=== PATIENT | male | born 1965 | race Caucasian/White ===

== ENCOUNTER 2017-07-05 12:48 | Emergency (ER) | payer MEDICAID, SELFPAY ==
[~2017-07-05] VITALS: Ht 172.7 cm; Wt 81.8 kg
[~2017-07-05 12:48] MED LIST: NOCURR
[2017-07-05] MEDS ORDERED: METH10SO PO (13:28)
[2017-07-05 13:50] VITALS: BP 141/100
[2017-07-05] MEDS ORDERED: CEPHALEXIN MONOHYDRATE 500 MG CAPSULE PO ONE (14:15)
[2017-07-05] MEDS ORDERED: SULFAMETHOX/TRIMETH DS 800-160 MG/TABLET PO ONE (14:15)
== END 2017-07-05 14:31 | disposition home or self-care (01) ==
LOC: EMS 12:49
DX: L03.115 Cellulitis of right lower limb (principal); F17.210 Nicotine dependence, cigarettes, uncomplicated
CPT/HCPCS: 99283

== ENCOUNTER 2018-11-05 01:16 | Emergency (ER) | payer MEDICAID ==
[~2018-11-05] VITALS: Ht 170.2 cm; Wt 84.5 kg
[~2018-11-05 01:16] MED LIST changes: +METH10SO PO; -NOCURR
[2018-11-05] MEDS ORDERED: KETOROLAC TROMETHAMINE 60 MG/2 ML VIAL IM ONE (04:30)
[2018-11-05 05:03] VITALS: BP 138/76
== END 2018-11-05 05:05 | disposition home or self-care (01) ==
LOC: EMS 01:18
DX: S63.502A Unspecified sprain of left wrist, initial encounter (principal); S60.222A Contusion of left hand, initial encounter; F17.210 Nicotine dependence, cigarettes, uncomplicated; W18.39XA Other fall on same level, initial encounter; Y93.89 Activity, other specified; Y92.89 Other specified places as the place of occurrence of the external cause; Y99.8 Other external cause status
CPT/HCPCS: 29125; 73110; 99283; J1885

== ENCOUNTER 2021-11-19 10:17 | Emergency (ER) | payer MEDICAID ==
[~2021-11-19] VITALS: Ht 172.7 cm; Wt 81.0 kg
[2021-11-19] MEDS ORDERED: CLINDAMYCIN 600 MG/D5% WATER 50 ML IV ONE (11:30)
[2021-11-19] MEDS ORDERED: VANCOMYCIN HCL 1 GM/D5% WATER 200 ML IV ONE (11:30)
[2021-11-19] MEDS ORDERED: 0.9% SODIUM CHLORIDE 10 ML SYRINGE IVP PRN (11:30)
[2021-11-19 11:41] VITALS: BP 133/71
[2021-11-19] MEDS ORDERED: DOXYCYCLINE HYCLATE 100 MG TABLET PO ONE (12:30)
[2021-11-19] MEDS ORDERED: PERTUSS(ACELL),DIPH,TET VAC/PF 0.5 ML SYRINGE IM. ONE (12:45)
== END 2021-11-19 12:35 | disposition left against medical advice (07) ==
LOC: EMS 10:17
DX: L03.116 Cellulitis of left lower limb (principal); L03.115 Cellulitis of right lower limb; F17.210 Nicotine dependence, cigarettes, uncomplicated; Z79.899 Other long term (current) drug therapy
CPT/HCPCS: 99283; J3370; J3490

== ENCOUNTER 2022-08-26 07:21 | Emergency (ER) | payer MEDICAID ==
[~2022-08-26] VITALS: Ht 172.7 cm; Wt 81.8 kg
[2022-08-26] MEDS ORDERED: HYDROGEN PEROXIDE 118 ML SOLUTION TP ONE (08:15)
[2022-08-26] MEDS ORDERED: DOXYCYCLINE HYCLATE 100 MG TABLET PO ONE (08:15)
[2022-08-26] MEDS ORDERED: BACITRACIN 0.9 GM PACKET OINTMENT TP ONE (08:15)
[2022-08-26] MEDS: CefTRIAXone SODIUM 1 GM/VIAL IM ONE ×2 (08:37→08:45)
[2022-08-26] MEDS: LIDOCAINE/PF 1% 2 ML VIAL IM ONE ×2 (08:37→08:45)
[2022-08-26 08:39] LABS: BASOPHILS % (AUTO) 0.5 % (0.0-2.0); EOSINOPHILS % (AUTO) 1.5 % (1.0-6.0); HEMATOCRIT 32.6 % (41-53); HEMOGLOBIN 10.6 g/dL (13.5-17.5); LYMPHOCYTES # (AUTO) 2.9 K/uL (1.0-4.8); LYMPHOCYTES % (AUTO) 51.8 % (22.0-44.0); MEAN CORPUSCULAR HEMOGLOBIN 26.9 pg (26.0-34.0); MEAN CORPUSCULAR HGB CONC 32.4 G/dL (31.0-37.0); MEAN CORPUSCULAR VOLUME 83 fL (80-100); MONOCYTES # (AUTO) 0.6 K/uL (0.1-1.0); MONOCYTES % (AUTO) 11.2 % (2.0-9.0); NEUTROPHILS # (AUTO) 1.9 K/uL (1.8-7.7); PLATELET COUNT (AUTO) 364 K/uL (150-450); RED BLOOD CELL COUNT(AUTO) 3.93 MIL/uL (4.50-5.90); RED CELL DISTRIBUTION WIDTH 13.6 % (11.5-14.5)
[2022-08-26 09:00] LABS: ANION GAP 4 mmol/L (8-16); CALCIUM, TOTAL 8.5 mg/dL (8.8-10.5); CARBON DIOXIDE 28 mmol/L (22-29); CHLORIDE 105 mmol/L (98-107); CREATININE 0.82 mg/dL (0.60-1.30); GLUCOSE,RANDOM 117 mg/dL (70-110); SODIUM SERUM 137 mmol/L (136-145); UREA NITROGEN, BLOOD 22 mg/dL (7-18)
[2022-08-26 09:05] LABS: ALANINE AMINOTRANSFERASE 35 U/L (12-78); ALBUMIN 2.6 g/dL (3.4-5.0); ALKALINE PHOSPHATASE 140 U/L (46-116); ASPARTATE AMINOTRANSFERASE 28 U/L (15-37); BILIRUBIN,TOTAL 0.2 mg/dL (0.1-1.0)
[2022-08-26 09:15] LABS: GLOMERULAR FILTR. RATE CALC > 60 mL/min (>60)
[2022-08-26 09:39] LABS: LACTIC ACID 0.9 mmol/L (0.4-2.0)
[2022-08-26] MEDS ORDERED: DOXY-354 PO (09:44)
[2022-08-26] MEDS ORDERED: CEPH-558 PO (09:44)
[2022-08-26] MEDS ORDERED: BACI14.26 TP (09:44)
[2022-08-26 10:01] VITALS: BP 142/80
== END 2022-08-26 10:05 | disposition left against medical advice (07) ==
LOC: EMS 07:24
DX: L03.115 Cellulitis of right lower limb (principal); R60.0 Localized edema; F17.210 Nicotine dependence, cigarettes, uncomplicated
CPT/HCPCS: 99284; 71045; 80053; 83605; 85025; 36415; 73590; J0696; J3490